=== PATIENT | female | born 1945 | race Hispanic/Latino ===

== ENCOUNTER → 2017-11-15 | Outpatient (CLI) | payer OTHER | LOC: RAH 13:03 | PROVIDERS: ATTEND Internal Medicine | DX: M17.11 Unilateral primary osteoarthritis, right knee (principal) | CPT/HCPCS: 73562 ==

== ENCOUNTER 2018-01-06 10:51 | Emergency (ER) | payer OTHER ==
[2018-01-06] MEDS ORDERED: ASPIRIN 325 MG TABLET ONE (11:10)
[2018-01-06 11:24] LABS: BASOPHILS % (AUTO) 0.5 % (0.0-5.0); EOSINOPHILS % (AUTO) 0.3 % (0.0-8.0); LYMPHOCYTES % (AUTO) 24.3 % (21.0-51.0); MEAN CORPUSCULAR HEMOGLOBIN 30.6 pg (27.0-33.0); MEAN CORPUSCULAR HGB CONC 34.1 g/dL (32.0-36.0); MEAN CORPUSCULAR VOLUME 89.7 fL (79-99); MONOCYTES % (AUTO) 6.2 % (3.0-13.0); NEUTROPHILS % (AUTO) 68.7 % (40.0-77.0); PLATELET COUNT (AUTO) 216 K/uL (130-400); RED BLOOD CELL COUNT(AUTO) 4.68 MIL/uL (4.00-5.50); RED CELL DISTRIBUTION WIDTH 13.2 % (11.0-15.5); WHITE BLOOD COUNT (AUTO) 6.4 K/uL (4.8-10.8)
[2018-01-06 11:32] LABS: CREATININE 0.8 mg/dL (0.5-1.5); POTASSIUM 3.1 mmol/L (3.5-5.1)
[2018-01-06 11:38] LABS: INR 1.03 (0.85-1.15); PARTIAL THROMBOPLASTIN TIME 24.8 SEC (26.3-35.5); PROTHROMBIN TIME 10.8 SEC (9.6-11.6)
[2018-01-06 11:45] LABS: ALBUMIN 3.5 g/dL (3.5-5.0); BILIRUBIN,TOTAL 0.8 mg/dL (0.2-1.0); CREATINE KINASE MB 2.6 ng/mL (0.5-3.6); TOTAL PROTEIN, SERUM 6.5 g/dL (6.0-8.3)
[2018-01-06] MEDS ORDERED: POTASSIUM BICARB/CIT AC 25 MEQ TABLET.EFF ONE (12:02)
[2018-01-06 14:19] LABS: APPEARANCE,URINE Clear (CLEAR); BILIRUBIN,URINE Negative (NEGATIVE); COLOR,URINE Yellow (YELLOW); GLUCOSE, URINE (UA) 250 mg/dL (NEGATIVE); KETONES,URINE Trace mg/dL (NEGATIVE); LEUKOCYTE ESTERASE ,URINE Large (NEGATIVE); NITRATE,URINE Negative (NEGATIVE); OCCULT BLOOD,URINE Negative (NEGATIVE); PROTEIN,URINE Negative (NEGATIVE)
[2018-01-06 14:34] LABS: BACTERIA,URINE Few /HPF (None Seen); MUCUS,URINE Few LPF (None Seen); RBC,URINE 0-1 /HPF (0-1); SQUAMOUS EPITHELIAL CELL,UR Rare /HPF (0-2); TRANSITIONAL EPI CELLS,URINE Few /HPF (None Seen)
[2018-01-06] MEDS ORDERED: SODIUM CHLORIDE 0.9% 100 ML IV ONE ×2 (15:15→15:19)
[2018-01-06] MEDS ORDERED: CEFTRIAXONE SODIUM 1 GM ONE ×2 (15:15→15:19)
== END 2018-01-06 15:58 | disposition home or self-care (01) ==
LOC: EDH 10:51
DX: R07.89 Other chest pain (principal); N30.00 Acute cystitis without hematuria; E87.6 Hypokalemia; R45.1 Restlessness and agitation; G30.9 Alzheimer's disease, unspecified; F02.80 Dementia in other diseases classified elsewhere, unspecified severity, without behavioral disturbance, psychotic disturbance, mood disturbance, and anxiety; E11.9 Type 2 diabetes mellitus without complications; I10 Essential (primary) hypertension
CPT/HCPCS: 36415; 71045; 80053; 81001; 82550; 82553; 83690; 83874; 84484 ×2; 85025; 85610; 85730; 93005 ×2; 96374; 99285; J0696

== ENCOUNTER 2019-06-22 12:45 | Inpatient (IN) | payer OTHER ==
--- NOTE | 2019-06-21 11:00 | NUR ---
INITIAL PT WELL KNOWN TO THIS CM DAUGHTER MET ME AT THE DOOR OF ROOM AND STATES I REMEMBER YOU, YOU WANTED HER TO GO [place] [facility] ON LAST ADMIT SUGGESTION OF [facility] WAS PRESENTED BY DR. FRENCH BUT FAMILY DID NOT AGREE. LIVES IN [facility]03 CARE PROVIDERS. MNEEDS ONE TO ONE SUPERVISION PT WITH STAGE IV SACRAL DECUBITUS- HAS HAD UHH AND WOUND VAC AT HOME- RECENTLY REMOVED, HAS BEEN FOLLOWING WITH DR. KING. FAMILY DOES NOT WANT PT TO GO TO A SNF- FEELS PT WILL BE TOO DISORIENTED AT A SNF. [facility] AND WAS VERY UPSET WITH THE CARE FROM DR. LUNA- STATES WAS SCHEDULED TO HAS ANOTHER DEBRIDEMENT PER DR. KING ON WEDNESDAY BUT CAME IN EARLY FAMILY STATES THAT DR. KING TOLD HER THIS WOUND WOULD NOT HEAL- PT WITH DEMENTIA AND POOR APPETITE, WILL EVENTUALLY NEED PEG, POSS HOSPICE CANDIDATE IF FAMILY DOES NOT WANT AGGRESSIVE INTERVENTION? FAMILY STATES WILL THINK ABOUT DIRECTION OF CARE AFTER I/D ON WEDNESDAY
[~2019-06-22] VITALS: Ht 160 cm; Wt 52.2 kg
[~2019-06-22 12:45] MED LIST: BACL10TA PO; BUSP10TA3 PO; LISI-617 PO; MELO-108 PO; METF-444 PO; RISP1TAB26 PO; SERT25TA5 PO; TRAZ-185 PO
[2019-06-22 14:07] LABS: BASOPHILS % (AUTO) 0.8 % (0.0-5.0); EOSINOPHILS % (AUTO) 0.9 % (0.0-8.0); HEMATOCRIT 29.1 % (36-48); LYMPHOCYTES % (AUTO) 11.9 % (21.0-51.0); MEAN CORPUSCULAR HEMOGLOBIN 30.8 pg (27.0-33.0); MEAN CORPUSCULAR HGB CONC 34.1 g/dL (32.0-36.0); MEAN CORPUSCULAR VOLUME 90.3 fL (79-99); MONOCYTES % (AUTO) 7.9 % (3.0-13.0); NEUTROPHILS % (AUTO) 78.5 % (40.0-77.0); PLATELET COUNT (AUTO) 242 K/uL (130-400); RED BLOOD CELL COUNT(AUTO) 3.22 MIL/uL (4.00-5.50); RED CELL DISTRIBUTION WIDTH 13.6 % (11.0-15.5); WHITE BLOOD COUNT (AUTO) 8.6 K/uL (4.8-10.8)
[2019-06-22 14:16] LABS: CARBON DIOXIDE 28 mmol/L (21-32); CHLORIDE 105 mmol/L (101-111); CREATININE 1.3 mg/dL (0.5-1.5); GLOMERULAR FILTR. RATE CALC 43 mL/min (>60); GLUCOSE,RANDOM 174 mg/dL (70-105); POTASSIUM 4.5 mmol/L (3.5-5.1); SODIUM SERUM 141 mmol/L (136-145); UREA NITROGEN, BLOOD 39 mg/dL (7-18)
[2019-06-22 14:18] LABS: INR 1.02 (0.85-1.15); PARTIAL THROMBOPLASTIN TIME 27.2 SEC (26.3-35.5); PROTHROMBIN TIME 10.7 SEC (9.6-11.6)
[2019-06-22 14:26] LABS: ALANINE AMINOTRANSFERASE 13 U/L (12-78); ALBUMIN 2.9 g/dL (3.5-5.0); ASPARTATE AMINOTRANSFERASE 18 U/L (10-37); BILIRUBIN,TOTAL 0.2 mg/dL (0.2-1.0); CREATINE KINASE, TOTAL 112 U/L (21-232); MYOGLOBIN 71 ng/mL (10-92); TOTAL PROTEIN, SERUM 6.4 g/dL (6.0-8.3); TROPONIN I < 0.04 ng/mL (0.00-0.06)
[2019-06-22] MEDS ORDERED: ZOSYN 3.375GM+NS 50ML 50 ML IV ONE (15:28)
[2019-06-22] MEDS ORDERED: SODIUM CHLORIDE 0.9% 1000ML 1,000 ML IV ONE ×2 (15:29→18:18)
[2019-06-22] MEDS ORDERED: MORPHINE SULFATE 4 MG/1ML SYG ONE (16:09)
[2019-06-22 16:11] LABS: APPEARANCE,URINE Clear (CLEAR); BILIRUBIN,URINE Small (NEGATIVE); COLOR,URINE Dark Yellow (YELLOW); GLUCOSE, URINE (UA) Negative (NEGATIVE); KETONES,URINE Negative (NEGATIVE); LEUKOCYTE ESTERASE ,URINE Small (NEGATIVE); NITRATE,URINE Negative (NEGATIVE); OCCULT BLOOD,URINE Negative (NEGATIVE); PROTEIN,URINE Negative (NEGATIVE)
[2019-06-22] MEDS ORDERED: VANCOMYCIN 1GM+NS 250ML 250 ML IV ONE (16:14)
[2019-06-22 16:28] LABS: BACTERIA,URINE Rare /HPF (None Seen); RBC,URINE 0-1 /HPF (0-1); SQUAMOUS EPITHELIAL CELL,UR Rare /HPF (0-2); TRANSITIONAL EPI CELLS,URINE Few /HPF (None Seen)
[2019-06-22 16:29] LABS: HYALINE CASTS, URINE 0-1 /LPF (0-1 /LPF)
[2019-06-22] MEDS: SODIUM CHLORIDE 0.9% 1000ML 1,000 ML IV SCH (17:27)
[2019-06-22] MEDS ORDERED: PHARMACY COMMUNICATION MISC SCH (17:45)
[2019-06-22] MEDS ORDERED: ONDANSETRON HCL 4 MG/2 ML VIAL IVP PRN (17:45)
[2019-06-22] MEDS ORDERED: RENAL DOSE IV SCH (17:45)
[2019-06-22] MEDS ORDERED: VANCOMYCIN PROTOCOL PER PHARMACY IV SCH (18:00)
[2019-06-22] MEDS ORDERED: DEXTROSE 50%-WATER 50 ML DISP.SYRIN IV PRN (18:00)
[2019-06-22] MEDS ORDERED: GLUCAGON 1MG KIT 1 MG ML IM PRN (18:00)
[2019-06-22] MEDS ORDERED: MORPHINE SULFATE 2 MG/ML 1ML SYG ONE (20:56)
[2019-06-22] MEDS: INSULIN HUMULIN R 100 UNIT/ML 3ML SQ SCH (21:00)
[2019-06-22 22:45] VITALS: BP 147/73
[2019-06-22] MEDS: ZOSYN 3.375GM+NS 50ML 50 ML IV SCH (23:43)
[2019-06-23 03:00] VITALS: BP 151/67
--- NOTE | 2019-06-23 03:30 | NUR ---
WOUND CARE PT CAME IN WITH DRESSED SACRAL DECUBITUS ULCER. STRONG FOUL ORDER NOTICED. REMOVED OLD DRESSING FROM SACRAL WOUND. WOUND REVEALS VISIBLE MUSCLE. WOUND HAS STRONG, FOUL ORDER. WOUND MEASURES 12CM X 15 CM. APPLIED BETADINE CAST TO WOUND AND COVERED WITH GAUZE. PT TOLERATED WOUND CHANGE WELL.
[2019-06-23 04:59] LABS: BASOPHILS % (AUTO) 1.2 % (0.0-5.0); EOSINOPHILS % (AUTO) 1.5 % (0.0-8.0); HEMATOCRIT 28.2 % (36-48); LYMPHOCYTES % (AUTO) 14.2 % (21.0-51.0); MEAN CORPUSCULAR HEMOGLOBIN 30.2 pg (27.0-33.0); MEAN CORPUSCULAR HGB CONC 33.7 g/dL (32.0-36.0); MEAN CORPUSCULAR VOLUME 89.5 fL (79-99); MONOCYTES % (AUTO) 8.2 % (3.0-13.0); NEUTROPHILS % (AUTO) 74.9 % (40.0-77.0); PLATELET COUNT (AUTO) 245 K/uL (130-400); RED BLOOD CELL COUNT(AUTO) 3.15 MIL/uL (4.00-5.50); RED CELL DISTRIBUTION WIDTH 13.4 % (11.0-15.5); WHITE BLOOD COUNT (AUTO) 7.8 K/uL (4.8-10.8)
[2019-06-23] MEDS ORDERED: VANCOMYCIN 500MG+NS 100ML 100 ML IV SCH (05:00)
[2019-06-23 05:02] LABS: POTASSIUM 3.5 mmol/L (3.5-5.1)
[2019-06-23] MEDS ORDERED: FURO20TA4 PO (05:35)
[2019-06-23] MEDS ORDERED: LORA0.5T83 PO (05:35)
[2019-06-23] MEDS ORDERED: TRAM1TAB PO (05:35)
[2019-06-23] MEDS: ZOSYN 3.375GM+NS 50ML 50 ML IV SCH ×2 (05:54→17:15)
[2019-06-23] MEDS: INSULIN HUMULIN R 100 UNIT/ML 3ML SQ SCH ×4 (07:30→20:31)
[2019-06-23 08:03] VITALS: BP 137/71
--- NOTE | 2019-06-23 10:05 | NUR ---
PAGED DR. KING
[2019-06-23] MEDS ORDERED: TRAM-355 PO (10:24)
[2019-06-23] MEDS ORDERED: GADODIAMIDE 10 MMOL/20 ML VIAL IV ONE (10:29)
[2019-06-23] MEDS: ENOXAPARIN SODIUM 30 MG/0.3 ML SQ SCH (10:38)
[2019-06-23] MEDS: VANCOMYCIN 500MG+NS 100ML 100 ML IV SCH (10:42)
--- NOTE | 2019-06-23 11:00 | NUR ---
INITIAL MET W PT AND DAUGHTER/ GRANDDAUGHTER AT [facility]- PT LIVES WITH DAUGHTER [place] CASE HAS BEEN CARE DEPENDENDT FOR ABOUT 7 YEARS- TRANSFER FROM BED TO W/CHAIR, USES A WALKER TO STAND, NEEDS ASSISTANC EWITH MOST TASKS, CURRENTLY IS MORE IDSORIENTED THAN USUAL, 2/2 TO PAIN MEDICAITON NOT SURE WHAT THE DISPOSTION WITH BE- FAMILY WANTS PT TO GO TO SNF FOR REHAB- NOT SURE WHAT REHAB WILL BE APPROPIRATE- PT WITH [facility] IMMOBIL[facility] AND NO SURGEON HAS GIVEN AN OK FOR PT. CM TO FOLLOW
[2019-06-23 12:00] VITALS: BP_SYST 127; BP_SYST 130; BP_DIAS 64; BP_DIAS 68
--- NOTE | 2019-06-23 12:04 | NUR ---
DR. SHERWOOD AWARE OF CONSULT
--- NOTE | 2019-06-23 12:30 | NUR ---
FAMILY REFUSING DR. KUMAR, DAUGHTER DOES NOT WANT ANYONE ELSE, BUT DR. KING SHE IS AWARE DR. KING IS OUT OF TOWN AND WILL NOT BE B ACK UNTIL WEDNESDAY [facility]PITAL[facility] [facility] AWARE DR. KUMAR AWARE FAMILY REFUSED CONSULT W HIM
--- NOTE | 2019-06-23 13:39 | NUR ---
FAMILY REFUSED CONSULT FOR DR. ADINA Gee WOUND CARE DAUGHTER STATED THEY DO NOT WANT HIM, SINCE PATIENT IS BEING FOLLOWED BY DR. KING. [facility] A[facility]
--- NOTE | 2019-06-23 13:47 | NUR ---
ESTRELLA FROM WOUND CARE AWARE OF WOUND CARE CONSULT
--- NOTE | 2019-06-23 15:15 | NUR ---
[facility] CONSULT PATIENT ASSESSED REQUESTED: PATIENT PRESENTS WITH UNSTAGEABLE PRESSURE ULCER TO RIGHT BUTTOCK; [facility] RECOMMENDATIONS SUBMITTED. Addendum: 06/23/19 at 1517 by ALEX JOHNSON LVN LVN W Amended: Links added.
[2019-06-23 16:00] VITALS: BP 142/81
[2019-06-23] MEDS ORDERED: METFORMIN HCL 500 MG TABLET PO SCH (17:00)
[2019-06-23] MEDS: BACLOFEN 10 MG TABLET PO SCH (17:15)
[2019-06-23] MEDS: SERTRALINE HCL 50 MG TABLET PO SCH (20:29)
[2019-06-23] MEDS: SODIUM CHLORIDE 0.9% 1000ML 1,000 ML IV SCH (20:29)
[2019-06-23] MEDS: RISPERIDONE 1 MG TABLET PO SCH (20:29)
[2019-06-23 20:31] VITALS: BP 142/72
[2019-06-23] MEDS ORDERED: PHARMACY COMMUNICATION MISC SCH (22:45)
[2019-06-23 23:30] VITALS: BP 132/70
[2019-06-24] MEDS: ZOSYN 3.375GM+NS 50ML 50 ML IV SCH ×4 (00:43→20:50)
[2019-06-24 03:30] VITALS: BP 151/76
[2019-06-24 06:18] LABS: BASOPHILS % (AUTO) 0.9 % (0.0-5.0); EOSINOPHILS % (AUTO) 1.5 % (0.0-8.0); HEMATOCRIT 29.6 % (36-48); LYMPHOCYTES % (AUTO) 14.7 % (21.0-51.0); MEAN CORPUSCULAR HEMOGLOBIN 30.8 pg (27.0-33.0); MEAN CORPUSCULAR HGB CONC 34.5 g/dL (32.0-36.0); MEAN CORPUSCULAR VOLUME 89.3 fL (79-99); MONOCYTES % (AUTO) 8.2 % (3.0-13.0); NEUTROPHILS % (AUTO) 74.7 % (40.0-77.0); PLATELET COUNT (AUTO) 252 K/uL (130-400); RED BLOOD CELL COUNT(AUTO) 3.32 MIL/uL (4.00-5.50); RED CELL DISTRIBUTION WIDTH 13.4 % (11.0-15.5); WHITE BLOOD COUNT (AUTO) 7.3 K/uL (4.8-10.8)
[2019-06-24 06:29] LABS: CREATININE 0.8 mg/dL (0.5-1.5); POTASSIUM 3.1 mmol/L (3.5-5.1)
[2019-06-24] MEDS: VANCOMYCIN 500MG+NS 100ML 100 ML IV SCH (06:36)
[2019-06-24] MEDS: INSULIN HUMULIN R 100 UNIT/ML 3ML SQ SCH ×4 (06:38→20:48)
[2019-06-24] MEDS ORDERED: COMPOUND IV REFRIGERATED 1 EACH IVSOLN MISC PRN (07:00)
[2019-06-24 07:30] VITALS: BP 150/78
[2019-06-24] MEDS ORDERED: LIDOCAINE HCL-MPF 1% 2ML VIAL IV PRN (07:45)
[2019-06-24] MEDS: BUSPIRONE HCL 5 MG TABLET PO SCH (08:03)
[2019-06-24] MEDS: SERTRALINE HCL 50 MG TABLET PO SCH ×2 (08:03→20:45)
[2019-06-24] MEDS: FUROSEMIDE 20 MG TABLET PO SCH (08:03)
[2019-06-24] MEDS: LISINOPRIL 5 MG TABLET PO SCH (08:03)
[2019-06-24] MEDS: MELOXICAM 7.5 MG TABLET PO SCH (08:03)
[2019-06-24] MEDS: MORPHINE SULFATE 2 MG/ML 1ML SYG IV PRN (08:05)
[2019-06-24] MEDS: ENOXAPARIN SODIUM 30 MG/0.3 ML SQ SCH (08:05)
[2019-06-24] MEDS: SODIUM CHLORIDE 0.9% 1000ML 1,000 ML IV SCH ×2 (08:06→20:59)
[2019-06-24 11:00] VITALS: BP 132/73
--- NOTE | 2019-06-24 12:29 | NUR ---
Nutrition Intervention: Nutrition consult due to malnutrition. Pt. admitted with Dx of Stg 4 Sacral decubitus ulcer. Pt. with fair p.o. intake as noted in EMR. Labs reviewed(Alb 2.9, BG 124). LBM: 06/22/19. SR-10, ulcer to right buttock/sacrum. BMI: 20.4, appropriate for age. Recommendations: 1) Rec. 30ml ProMod and Glucerna supp. BID with B'fast and dinner meals. 2) Rec. 500mg Vit C BID and 220mg Zn Sulfate QD to help promote wound healing. 3) Continue to monitor pt's nutritional status. 4) Consult RD as nutrition concerns arise. Addendum: 06/24/19 at [address] Amended: Links added.
--- NOTE | 2019-06-24 15:00 | NUR ---
WOUND CARE' UNSTABLE PRESSURE ULCER CLEANED PER [facility] RECOMMENDATIONS. WOUND SITE RINSED WITH NS, BETADINE CAST APPLIED TO SITE. PATIENT TOLERATED WELL.
[2019-06-24 15:36] VITALS: BP 154/77
[2019-06-24] MEDS: BACLOFEN 10 MG TABLET PO SCH (17:03)
[2019-06-24] MEDS ORDERED: VANCOMYCIN 1.25 GM in SODIUM CHLORIDE 0.9% 250 ML IV SCH (18:00)
[2019-06-24] MEDS: POTASSIUM CHLORIDE 10% ELIXIR 20 MEQ/15 ML UDCUP PO PRN (18:30)
[2019-06-24 19:00] VITALS: BP 139/74
[2019-06-24] MEDS: RISPERIDONE 1 MG TABLET PO SCH (20:45)
[2019-06-24 23:00] VITALS: BP 133/70
[2019-06-25] MEDS: POTASSIUM CHLORIDE 20MEQ/100ML 100 ML IV PRN ×3 (00:29→18:29)
[2019-06-25 03:39] VITALS: BP 136/65
[2019-06-25 05:25] LABS: BASOPHILS % (AUTO) 0.8 % (0.0-5.0); EOSINOPHILS % (AUTO) 1.2 % (0.0-8.0); HEMATOCRIT 30.2 % (36-48); LYMPHOCYTES % (AUTO) 10.8 % (21.0-51.0); MEAN CORPUSCULAR VOLUME 88.4 fL (79-99); MONOCYTES % (AUTO) 7.6 % (3.0-13.0); NEUTROPHILS % (AUTO) 79.6 % (40.0-77.0); PLATELET COUNT (AUTO) 305 K/uL (130-400); RED BLOOD CELL COUNT(AUTO) 3.42 MIL/uL (4.00-5.50); RED CELL DISTRIBUTION WIDTH 13.3 % (11.0-15.5); WHITE BLOOD COUNT (AUTO) 8.4 K/uL (4.8-10.8)
[2019-06-25] MEDS: VANCOMYCIN 750MG + NS 250 ML IV SCH ×4 (05:31→19:29)
[2019-06-25 05:33] LABS: ALBUMIN 2.5 g/dL (3.5-5.0); BILIRUBIN,TOTAL 0.4 mg/dL (0.2-1.0); CREATININE 0.8 mg/dL (0.5-1.5); POTASSIUM 3.3 mmol/L (3.5-5.1)
[2019-06-25] MEDS: INSULIN HUMULIN R 100 UNIT/ML 3ML SQ SCH ×4 (05:44→20:39)
[2019-06-25] MEDS: ZOSYN 3.375GM+NS 50ML 50 ML IV SCH ×3 (05:46→21:49)
[2019-06-25 09:30] VITALS: BP 138/61
[2019-06-25] MEDS: FUROSEMIDE 20 MG TABLET PO SCH (09:38)
[2019-06-25] MEDS: BUSPIRONE HCL 5 MG TABLET PO SCH (09:38)
[2019-06-25] MEDS: MELOXICAM 7.5 MG TABLET PO SCH (09:38)
[2019-06-25] MEDS: LISINOPRIL 5 MG TABLET PO SCH (09:38)
[2019-06-25] MEDS: SERTRALINE HCL 50 MG TABLET PO SCH ×2 (09:38→20:34)
[2019-06-25] MEDS: ENOXAPARIN SODIUM 30 MG/0.3 ML SQ SCH (09:39)
[2019-06-25 11:53] VITALS: BP 134/74
[2019-06-25] MEDS: SODIUM CHLORIDE 0.9% 1000ML 1,000 ML IV SCH (12:15)
[2019-06-25] MEDS: MAGNESIUM 2GM PREMIX 50ML 50 ML IV PRN (12:23)
--- NOTE | 2019-06-25 14:00 | NUR ---
WOUND CARE UNSTAGEABLE PRESSURE ULCER CLEANED WITH NS, 4X4 WITH BETADINE APPLIED TO WOUND PER [facility] RECOMMENDATIONS. COVERED WITH ABD PAD AND TAPE. PATIENT COMPLAINED OF PAIN. MORPHINE 2 MG ADMINISTERED PER EMAR. WILL CONTINUE TO MONITOR.
[2019-06-25 16:00] VITALS: BP 137/78
[2019-06-25] MEDS: BACLOFEN 10 MG TABLET PO SCH (18:26)
[2019-06-25] MEDS: MORPHINE SULFATE 2 MG/ML 1ML SYG IV PRN (18:27)
[2019-06-25 20:09] VITALS: BP 137/66
[2019-06-25] MEDS: RISPERIDONE 1 MG TABLET PO SCH (20:34)
[2019-06-26] VITALS (7 sets, daily range): BP systolic 132–148; BP diastolic 54–75
[2019-06-26] MEDS: SODIUM CHLORIDE 0.9% 1000ML 1,000 ML IV SCH ×2 (01:27→15:47)
[2019-06-26 04:17] LABS: MAGNESIUM 1.8 mg/dL (1.80-2.40); POTASSIUM 3.5 mmol/L (3.5-5.1)
[2019-06-26] MEDS: INSULIN HUMULIN R 100 UNIT/ML 3ML SQ SCH ×4 (05:47→20:13)
[2019-06-26] MEDS: ZOSYN 3.375GM+NS 50ML 50 ML IV SCH ×3 (05:49→20:13)
[2019-06-26] MEDS: VANCOMYCIN 750MG + NS 250 ML IV SCH ×4 (06:18→17:31)
[2019-06-26 07:30] LABS: BASOPHILS % (AUTO) 0.8 % (0.0-5.0); EOSINOPHILS % (AUTO) 1.8 % (0.0-8.0); HEMATOCRIT 30.3 % (36-48); LYMPHOCYTES % (AUTO) 14.3 % (21.0-51.0); MEAN CORPUSCULAR HEMOGLOBIN 30.8 pg (27.0-33.0); MEAN CORPUSCULAR HGB CONC 34.5 g/dL (32.0-36.0); MEAN CORPUSCULAR VOLUME 89.2 fL (79-99); MONOCYTES % (AUTO) 8.5 % (3.0-13.0); NEUTROPHILS % (AUTO) 74.6 % (40.0-77.0); PLATELET COUNT (AUTO) 292 K/uL (130-400); RED CELL DISTRIBUTION WIDTH 13.4 % (11.0-15.5); WHITE BLOOD COUNT (AUTO) 6.7 K/uL (4.8-10.8)
[2019-06-26 07:51] LABS: CREATININE 0.8 mg/dL (0.5-1.5); POTASSIUM 3.2 mmol/L (3.5-5.1)
[2019-06-26] MEDS: BUSPIRONE HCL 5 MG TABLET PO SCH (10:10)
[2019-06-26] MEDS: LISINOPRIL 5 MG TABLET PO SCH (10:11)
[2019-06-26] MEDS: SERTRALINE HCL 50 MG TABLET PO SCH ×2 (10:11→20:13)
[2019-06-26] MEDS: FUROSEMIDE 20 MG TABLET PO SCH (10:11)
[2019-06-26] MEDS: MELOXICAM 7.5 MG TABLET PO SCH (10:11)
[2019-06-26] MEDS: ENOXAPARIN SODIUM 30 MG/0.3 ML SQ SCH (10:13)
[2019-06-26] MEDS: POTASSIUM CHLORIDE 20 MEQ ERTAB PO PRN ×2 (10:50→17:31)
[2019-06-26] MEDS: MORPHINE SULFATE 2 MG/ML 1ML SYG IV PRN ×2 (10:59→20:21)
--- NOTE | 2019-06-26 14:27 | NUR ---
CM Note: [facility] pending ins auth CM met w/pt discussed MD recommendation for LTAC as pt will need antibiotics as well we woundcare, agreeable, requested to have daughter called. CM called Stephanie Egan , discussed MD recommendations per pt req. Daughter agreeable if needed truck terminal manager placement for woundcare and abx, telephone consent RADHA obtained for [facility]. Faxed order, clinicals, confirmation received. Spoke to Subha, will come eval pt aware pt pending I&D w/Dr Thomason tomorrow. Pt pending ins auth and acceptance. MOT semi-filled pending to be completed once approved, flagged in chart. EMS filled out, pending to be faxed w/current date, primary nurse to call [facility] once pt ready to DC. Primary nurse aware. CM to cont to follow up.
[2019-06-26] MEDS: METRONIDAZOLE 500 MG TABLET PO SCH (17:23)
[2019-06-26] MEDS: BACLOFEN 10 MG TABLET PO SCH (17:23)
[2019-06-26] MEDS: RISPERIDONE 1 MG TABLET PO SCH (20:12)
[2019-06-26] MEDS: MAGNESIUM 2GM PREMIX 50ML 50 ML IV PRN (20:17)
[2019-06-27] VITALS (25 sets, daily range): BP systolic 105–153; BP diastolic 48–96
[2019-06-27] MEDS: METRONIDAZOLE 500 MG TABLET PO SCH ×4 (01:54→23:11)
[2019-06-27] MEDS: ZOSYN 3.375GM+NS 50ML 50 ML IV SCH ×3 (05:44→20:48)
[2019-06-27] MEDS: VANCOMYCIN 750MG + NS 250 ML IV SCH ×4 (05:44→18:56)
[2019-06-27] MEDS: INSULIN HUMULIN R 100 UNIT/ML 3ML SQ SCH ×4 (07:30→20:56)
[2019-06-27] MEDS: SODIUM CHLORIDE 0.9% 1000ML 1,000 ML IV SCH ×3 (08:17→18:39)
[2019-06-27] MEDS ORDERED: LIDOCAINE PF 2% 5ML ABBOJECT ONE (08:39)
[2019-06-27] MEDS ORDERED: NEOSTIGMINE 5MG/5ML SYR IV ONE (08:39)
[2019-06-27] MEDS ORDERED: GLYCOPYRROLATE 1 MG/5 ML SYRINGE ONE (08:39)
[2019-06-27] MEDS ORDERED: SUCCINYLCHOLINE 200MG/10ML SYR ONE (08:39)
[2019-06-27] MEDS ORDERED: PROPOFOL 10 MG/ML 20ML VIAL IV ONE (08:39)
[2019-06-27] MEDS ORDERED: ROCURONIUM 10MG/1ML SYR 10 MG/ML ML ONE (08:39)
[2019-06-27] MEDS ORDERED: DEXAMETHASONE SOD PHOSPHATE 10MG/ML 1ML VIAL ONE (08:39)
[2019-06-27] MEDS: FUROSEMIDE 20 MG TABLET PO SCH (08:51)
[2019-06-27] MEDS: MELOXICAM 7.5 MG TABLET PO SCH (08:51)
[2019-06-27] MEDS: SERTRALINE HCL 50 MG TABLET PO SCH ×2 (08:51→20:48)
[2019-06-27] MEDS: ENOXAPARIN SODIUM 30 MG/0.3 ML SQ SCH (08:51)
[2019-06-27] MEDS: BUSPIRONE HCL 5 MG TABLET PO SCH (08:51)
[2019-06-27] MEDS: LISINOPRIL 5 MG TABLET PO SCH (08:51)
[2019-06-27] MEDS ORDERED: FENTANYL CITRATE PF 50 MCG/1 ML 2ML VIAL ONE (08:56)
[2019-06-27] MEDS ORDERED: EPHEDRINE SULFATE 50 MG/ML AMPULE ONE (09:09)
[2019-06-27] MEDS ORDERED: ESMOLOL HCL 10 MG/ML 10 ML VIAL ONE (09:20)
[2019-06-27] MEDS ORDERED: METOPROLOL TARTRATE 1 MG/ML 5ML VIAL IV ONE (09:24)
--- NOTE | 2019-06-27 16:57 | NUR ---
RD Follow Up Note Pt NPO at time of visit, pending Debridement. Recommend to resume 75gm CC Diet when medically feasible. Recommend to add Ryan BID, Vitamin C/ZnSO4 daily for wound healing support. Pt previously tolerated diet with no report of GI distress, fair PO (75%). Pt LBM 06/27/19. Pt monitored labs: K 3.2, Glu 207, Ca 8.2, Mg 1.40, Alb 2.5. RD to continue to monitor. Please notify RD as additional nutrition concerns arise. Thank you. Addendum: 06/27/19 at [address] Amended: Links added.
[2019-06-27] MEDS: MORPHINE SULFATE 2 MG/ML 1ML SYG IV PRN (18:37)
[2019-06-27] MEDS: BACLOFEN 10 MG TABLET PO SCH (18:38)
[2019-06-27] MEDS: RISPERIDONE 1 MG TABLET PO SCH (20:48)
[2019-06-28] VITALS: BP 122/59
[2019-06-28] MEDS: SODIUM CHLORIDE 0.9% 1000ML 1,000 ML IV SCH ×3 (04:46→21:41)
[2019-06-28 04:59] LABS: BASOPHILS % (AUTO) 1.5 % (0.0-5.0); EOSINOPHILS % (AUTO) 3.5 % (0.0-8.0); LYMPHOCYTES % (AUTO) 15.7 % (21.0-51.0); MEAN CORPUSCULAR HEMOGLOBIN 31.4 pg (27.0-33.0); MEAN CORPUSCULAR HGB CONC 35.2 g/dL (32.0-36.0); MEAN CORPUSCULAR VOLUME 89.2 fL (79-99); MONOCYTES % (AUTO) 10.6 % (3.0-13.0); NEUTROPHILS % (AUTO) 68.7 % (40.0-77.0); PLATELET COUNT (AUTO) 293 K/uL (130-400); RED BLOOD CELL COUNT(AUTO) 3.02 MIL/uL (4.00-5.50); RED CELL DISTRIBUTION WIDTH 13.7 % (11.0-15.5); WHITE BLOOD COUNT (AUTO) 6.5 K/uL (4.8-10.8)
[2019-06-28] MEDS: ZOSYN 3.375GM+NS 50ML 50 ML IV SCH ×3 (05:19→21:41)
[2019-06-28 05:28] LABS: ALBUMIN 2.2 g/dL (3.5-5.0); BILIRUBIN,TOTAL 0.3 mg/dL (0.2-1.0); CREATININE 0.7 mg/dL (0.5-1.5); POTASSIUM 3.5 mmol/L (3.5-5.1); TOTAL PROTEIN, SERUM 5.2 g/dL (6.0-8.3)
[2019-06-28] MEDS: VANCOMYCIN 750MG + NS 250 ML IV SCH ×4 (06:27→17:51)
[2019-06-28] MEDS: METRONIDAZOLE 500 MG TABLET PO SCH ×3 (06:27→21:44)
[2019-06-28] MEDS: INSULIN HUMULIN R 100 UNIT/ML 3ML SQ SCH ×4 (06:39→21:42)
[2019-06-28 07:35] VITALS: BP 133/54
[2019-06-28] MEDS: ENOXAPARIN SODIUM 30 MG/0.3 ML SQ SCH (09:00)
[2019-06-28] MEDS: MELOXICAM 7.5 MG TABLET PO SCH (09:53)
[2019-06-28] MEDS: SERTRALINE HCL 50 MG TABLET PO SCH ×2 (09:53→21:37)
[2019-06-28] MEDS: BUSPIRONE HCL 5 MG TABLET PO SCH (09:53)
[2019-06-28] MEDS: FUROSEMIDE 20 MG TABLET PO SCH (09:53)
[2019-06-28] MEDS: LISINOPRIL 5 MG TABLET PO SCH (09:54)
[2019-06-28 12:00] VITALS: BP 144/64
--- NOTE | 2019-06-28 14:30 | NUR ---
[facility] CONSULT PATIENT ASSESSED REQUESTED: PATIENT PRESENTS WITH STAGE II PRESSURE ULCER TO LEFT EAR; [facility] RECOMMENDATIONS SUBMITTED. Addendum: 06/29/19 at 1140 by ALEX JOHNSON LVN LVN W Amended: Links added.
[2019-06-28 16:00] VITALS: BP 152/65
[2019-06-28] MEDS ORDERED: LORAZEPAM 2 MG/ML 1 ML VIAL IVP PRN (16:45)
[2019-06-28] MEDS: BACLOFEN 10 MG TABLET PO SCH (17:00)
[2019-06-28] MEDS ORDERED: LORAZEPAM 2 MG/ML 1 ML VIAL ONE (17:08)
[2019-06-28] MEDS: MORPHINE SULFATE 2 MG/ML 1ML SYG IV PRN (17:12)
[2019-06-28 19:00] VITALS: BP 136/58
[2019-06-28] MEDS: RISPERIDONE 1 MG TABLET PO SCH (21:37)
[2019-06-29] VITALS: BP 149/65
[2019-06-29 04:00] VITALS: BP 134/55
[2019-06-29] MEDS: SODIUM CHLORIDE 0.9% 1000ML 1,000 ML IV SCH ×4 (04:33→21:59)
[2019-06-29] MEDS: ZOSYN 3.375GM+NS 50ML 50 ML IV SCH ×3 (05:06→21:59)
[2019-06-29] MEDS: VANCOMYCIN 750MG + NS 250 ML IV SCH ×4 (05:34→18:28)
[2019-06-29] MEDS: METRONIDAZOLE 500 MG TABLET PO SCH ×3 (06:06→21:05)
[2019-06-29] MEDS: INSULIN HUMULIN R 100 UNIT/ML 3ML SQ SCH ×4 (06:07→21:32)
[2019-06-29] MEDS: HONEY 1 APPL/ML TUBE TP SCH (08:00)
[2019-06-29 09:00] VITALS: BP 126/88
[2019-06-29] MEDS: ENOXAPARIN SODIUM 30 MG/0.3 ML SQ SCH (10:19)
[2019-06-29] MEDS: MELOXICAM 7.5 MG TABLET PO SCH (10:20)
[2019-06-29] MEDS: FUROSEMIDE 20 MG TABLET PO SCH (10:20)
[2019-06-29] MEDS: LISINOPRIL 5 MG TABLET PO SCH (10:20)
[2019-06-29] MEDS: BUSPIRONE HCL 5 MG TABLET PO SCH (10:20)
[2019-06-29] MEDS: SERTRALINE HCL 50 MG TABLET PO SCH ×2 (10:20→21:05)
[2019-06-29 11:49] VITALS: BP 149/75
[2019-06-29 16:00] VITALS: BP 138/69
[2019-06-29] MEDS: BACLOFEN 10 MG TABLET PO SCH (16:28)
[2019-06-29 19:00] VITALS: BP 159/78
[2019-06-29] MEDS: RISPERIDONE 1 MG TABLET PO SCH (21:05)
[2019-06-30] VITALS: BP 126/60
[2019-06-30 04:00] VITALS: BP 143/71
--- NOTE | 2019-06-30 04:30 | NUR ---
DRESSING LEFT EAR PATIENT GIVEN A BEDBATH, LEFT EAR ULCERATION WITH DRY ESCHAR, NO DRAINAGE NOTED, CLEANSED WITH NS , DAB DRY , APPLY MEDIHONEY, APPLY 2X2 AND HYPAFIX , TOLERATED WELL, SACRAL WOUND VAC INTACT NO LEAKS NOTICED
[2019-06-30 05:14] LABS: BASOPHILS % (AUTO) 1.3 % (0.0-5.0); EOSINOPHILS % (AUTO) 4.8 % (0.0-8.0); LYMPHOCYTES % (AUTO) 25.9 % (21.0-51.0); MEAN CORPUSCULAR HEMOGLOBIN 30.2 pg (27.0-33.0); MEAN CORPUSCULAR HGB CONC 34.2 g/dL (32.0-36.0); MEAN CORPUSCULAR VOLUME 88.2 fL (79-99); MONOCYTES % (AUTO) 9.1 % (3.0-13.0); NEUTROPHILS % (AUTO) 58.9 % (40.0-77.0); PLATELET COUNT (AUTO) 371 K/uL (130-400); RED BLOOD CELL COUNT(AUTO) 3.28 MIL/uL (4.00-5.50); RED CELL DISTRIBUTION WIDTH 13.6 % (11.0-15.5); WHITE BLOOD COUNT (AUTO) 7.2 K/uL (4.8-10.8)
[2019-06-30] MEDS: VANCOMYCIN 750MG + NS 250 ML IV SCH ×4 (05:31→18:52)
[2019-06-30] MEDS: METRONIDAZOLE 500 MG TABLET PO SCH ×3 (05:32→23:06)
[2019-06-30] MEDS: ZOSYN 3.375GM+NS 50ML 50 ML IV SCH ×3 (05:32→21:06)
[2019-06-30] MEDS: LACTULOSE 20 GM/30 ML UDCUP PO PRN (05:35)
[2019-06-30 05:36] LABS: CREATININE 0.8 mg/dL (0.5-1.5); POTASSIUM 3.3 mmol/L (3.5-5.1)
[2019-06-30] MEDS: INSULIN HUMULIN R 100 UNIT/ML 3ML SQ SCH ×4 (05:53→21:00)
[2019-06-30] MEDS: HONEY 1 APPL/ML TUBE TP SCH (05:55)
[2019-06-30] MEDS: POTASSIUM CHLORIDE 10% ELIXIR 20 MEQ/15 ML UDCUP PO PRN ×3 (06:19→23:06)
[2019-06-30 08:00] VITALS: BP 138/72
[2019-06-30] MEDS: FUROSEMIDE 20 MG TABLET PO SCH (10:13)
[2019-06-30] MEDS: MELOXICAM 7.5 MG TABLET PO SCH (10:13)
[2019-06-30] MEDS: LISINOPRIL 5 MG TABLET PO SCH (10:13)
[2019-06-30] MEDS: BUSPIRONE HCL 5 MG TABLET PO SCH (10:14)
[2019-06-30] MEDS: SERTRALINE HCL 50 MG TABLET PO SCH ×2 (10:14→21:06)
[2019-06-30] MEDS: ENOXAPARIN SODIUM 30 MG/0.3 ML SQ SCH (10:15)
--- NOTE | 2019-06-30 10:45 | NUR ---
cm note spoke to Subha Ronquillo states still pending approval, insurance has denied preliminary, but states has spoken to dr Gonzalez, regarding doing an expedited appeal for this pt, states will followup with Dr Arce for paperwork needed, and let cm know.
[2019-06-30 11:00] VITALS: BP 150/71
[2019-06-30 16:32] VITALS: BP 153/66
[2019-06-30] MEDS: BACLOFEN 10 MG TABLET PO SCH (17:37)
[2019-06-30 19:37] VITALS: BP 127/52
[2019-06-30] MEDS: RISPERIDONE 1 MG TABLET PO SCH (21:06)
[2019-06-30] MEDS: SODIUM CHLORIDE 0.9% 1000ML 1,000 ML IV SCH (21:07)
[2019-07-01 00:06] VITALS: BP 133/65
[2019-07-01 03:30] VITALS: BP 156/72
[2019-07-01] MEDS: ZOSYN 3.375GM+NS 50ML 50 ML IV SCH ×3 (05:05→21:45)
[2019-07-01] MEDS: VANCOMYCIN 750MG + NS 250 ML IV SCH ×4 (05:20→18:00)
[2019-07-01 05:40] LABS: BASOPHILS % (AUTO) 1.5 % (0.0-5.0); EOSINOPHILS % (AUTO) 2.7 % (0.0-8.0); HEMATOCRIT 28.5 % (36-48); LYMPHOCYTES % (AUTO) 15.7 % (21.0-51.0); MEAN CORPUSCULAR HEMOGLOBIN 30.2 pg (27.0-33.0); MEAN CORPUSCULAR HGB CONC 34.1 g/dL (32.0-36.0); MEAN CORPUSCULAR VOLUME 88.7 fL (79-99); MONOCYTES % (AUTO) 9.5 % (3.0-13.0); NEUTROPHILS % (AUTO) 70.6 % (40.0-77.0); NUCLEATED RED BLOOD CELLS 0.1 % (0.0-0.19); PLATELET COUNT (AUTO) 347 K/uL (130-400); RED BLOOD CELL COUNT(AUTO) 3.21 MIL/uL (4.00-5.50); RED CELL DISTRIBUTION WIDTH 13.7 % (11.0-15.5); WHITE BLOOD COUNT (AUTO) 7.3 K/uL (4.8-10.8)
[2019-07-01 05:49] LABS: CREATININE 0.8 mg/dL (0.5-1.5); POTASSIUM 3.5 mmol/L (3.5-5.1)
[2019-07-01] MEDS: METRONIDAZOLE 500 MG TABLET PO SCH ×3 (06:03→23:04)
[2019-07-01] MEDS: POTASSIUM CHLORIDE 10% ELIXIR 20 MEQ/15 ML UDCUP PO PRN ×2 (06:04→10:07)
[2019-07-01] MEDS: HONEY 1 APPL/ML TUBE TP SCH (06:41)
[2019-07-01] MEDS: INSULIN HUMULIN R 100 UNIT/ML 3ML SQ SCH ×4 (06:41→20:52)
[2019-07-01 08:00] VITALS: BP 176/72
[2019-07-01] MEDS: BUSPIRONE HCL 5 MG TABLET PO SCH (10:07)
[2019-07-01] MEDS: LISINOPRIL 5 MG TABLET PO SCH (10:08)
[2019-07-01] MEDS: SERTRALINE HCL 50 MG TABLET PO SCH ×3 (10:08→21:00)
[2019-07-01] MEDS: MELOXICAM 7.5 MG TABLET PO SCH (10:08)
[2019-07-01] MEDS: FUROSEMIDE 20 MG TABLET PO SCH (10:09)
[2019-07-01] MEDS: ENOXAPARIN SODIUM 30 MG/0.3 ML SQ SCH (10:09)
[2019-07-01 11:04] VITALS: BP 174/71
--- NOTE | 2019-07-01 12:00 | NUR ---
cm note spoke to dr mares regarding still pending approval for [facility], and states has spoken to [facility] about expedited appeal and has addresed requested paperwork already.
[2019-07-01] MEDS: SODIUM CHLORIDE 0.9% 1000ML 1,000 ML IV SCH (13:41)
[2019-07-01] MEDS: BACLOFEN 10 MG TABLET PO SCH (16:36)
--- NOTE | 2019-07-01 18:20 | NUR ---
Received notification from lab regarding Vanco Trough level of 23.6. Faxed trough level to pharmacy and notified pharmacist. Pharmacy to decrease dose, per pharmacist.
[2019-07-01 19:57] VITALS: BP 128/50
[2019-07-01] MEDS: RISPERIDONE 1 MG TABLET PO SCH ×2 (20:51→21:00)
--- NOTE | 2019-07-01 20:55 | NUR ---
meds not administered pt very drowsy at this time ,medications not given Addendum: 07/02/19 at 0507 by KODY BECERRA RN RN Amended: Links added.
[2019-07-01 23:38] VITALS: BP 141/55
[2019-07-02 03:30] VITALS: BP 136/62
[2019-07-02] MEDS: LACTULOSE 20 GM/30 ML UDCUP PO PRN (05:03)
[2019-07-02 05:35] LABS: BASOPHILS % (AUTO) 1.2 % (0.0-5.0); HEMATOCRIT 31.3 % (36-48); LYMPHOCYTES % (AUTO) 20.5 % (21.0-51.0); MEAN CORPUSCULAR HEMOGLOBIN 30.5 pg (27.0-33.0); MEAN CORPUSCULAR HGB CONC 33.8 g/dL (32.0-36.0); MEAN CORPUSCULAR VOLUME 90.2 fL (79-99); NEUTROPHILS % (AUTO) 64.3 % (40.0-77.0); PLATELET COUNT (AUTO) 402 K/uL (130-400); RED BLOOD CELL COUNT(AUTO) 3.47 MIL/uL (4.00-5.50); RED CELL DISTRIBUTION WIDTH 14.3 % (11.0-15.5)
[2019-07-02] MEDS: VANCOMYCIN 750MG + NS 250 ML IV SCH ×4 (05:44→19:01)
[2019-07-02] MEDS: ZOSYN 3.375GM+NS 50ML 50 ML IV SCH ×2 (05:44→14:56)
[2019-07-02 06:01] LABS: CREATININE 0.8 mg/dL (0.5-1.5); POTASSIUM 3.9 mmol/L (3.5-5.1)
[2019-07-02] MEDS: INSULIN HUMULIN R 100 UNIT/ML 3ML SQ SCH ×4 (06:17→20:51)
[2019-07-02] MEDS: METRONIDAZOLE 500 MG TABLET PO SCH ×3 (06:17→22:37)
[2019-07-02 07:47] VITALS: BP 127/58
[2019-07-02] MEDS: LISINOPRIL 5 MG TABLET PO SCH (09:00)
[2019-07-02] MEDS: MELOXICAM 7.5 MG TABLET PO SCH (09:52)
[2019-07-02] MEDS: SERTRALINE HCL 50 MG TABLET PO SCH ×2 (09:53→20:29)
[2019-07-02] MEDS: FUROSEMIDE 20 MG TABLET PO SCH (09:53)
[2019-07-02] MEDS: BUSPIRONE HCL 5 MG TABLET PO SCH (09:53)
[2019-07-02] MEDS: ENOXAPARIN SODIUM 30 MG/0.3 ML SQ SCH (09:54)
[2019-07-02 11:10] VITALS: BP 127/54
[2019-07-02] MEDS: SODIUM CHLORIDE 0.9% 1000ML 1,000 ML IV SCH (14:56)
[2019-07-02] MEDS: HONEY 1 APPL/ML TUBE TP SCH (14:56)
[2019-07-02 16:02] VITALS: BP 107/68
[2019-07-02] MEDS: BACLOFEN 10 MG TABLET PO SCH (16:55)
[2019-07-02 20:00] VITALS: BP 115/63
[2019-07-02] MEDS: RISPERIDONE 1 MG TABLET PO SCH (20:29)
[2019-07-02 23:46] VITALS: BP 106/48
[2019-07-03 03:51] VITALS: BP 121/62
[2019-07-03 03:54] LABS: BASOPHILS % (AUTO) 1.5 % (0.0-5.0); EOSINOPHILS % (AUTO) 4.8 % (0.0-8.0); LYMPHOCYTES % (AUTO) 16.9 % (21.0-51.0); MEAN CORPUSCULAR HEMOGLOBIN 31.2 pg (27.0-33.0); MEAN CORPUSCULAR HGB CONC 34.5 g/dL (32.0-36.0); MEAN CORPUSCULAR VOLUME 90.4 fL (79-99); MONOCYTES % (AUTO) 7.6 % (3.0-13.0); NEUTROPHILS % (AUTO) 69.2 % (40.0-77.0); PLATELET COUNT (AUTO) 320 K/uL (130-400); RED BLOOD CELL COUNT(AUTO) 3.21 MIL/uL (4.00-5.50); RED CELL DISTRIBUTION WIDTH 13.9 % (11.0-15.5); WHITE BLOOD COUNT (AUTO) 7.9 K/uL (4.8-10.8)
[2019-07-03 04:07] LABS: CREATININE 0.9 mg/dL (0.5-1.5); POTASSIUM 3.7 mmol/L (3.5-5.1)
[2019-07-03] MEDS: SODIUM CHLORIDE 0.9% 1000ML 1,000 ML IV SCH (05:04)
[2019-07-03] MEDS: INSULIN HUMULIN R 100 UNIT/ML 3ML SQ SCH ×4 (05:50→21:59)
[2019-07-03] MEDS: VANCOMYCIN 750MG + NS 250 ML IV SCH ×2 (05:56)
[2019-07-03] MEDS: METRONIDAZOLE 500 MG TABLET PO SCH ×3 (05:56→23:18)
[2019-07-03 08:01] VITALS: BP 123/53
[2019-07-03] MEDS: BUSPIRONE HCL 5 MG TABLET PO SCH (08:40)
[2019-07-03] MEDS: SERTRALINE HCL 50 MG TABLET PO SCH ×2 (08:41→21:49)
[2019-07-03] MEDS: MELOXICAM 7.5 MG TABLET PO SCH (08:41)
[2019-07-03] MEDS: LISINOPRIL 5 MG TABLET PO SCH (08:41)
[2019-07-03] MEDS: FUROSEMIDE 20 MG TABLET PO SCH (08:41)
[2019-07-03] MEDS: ENOXAPARIN SODIUM 30 MG/0.3 ML SQ SCH (08:42)
[2019-07-03] MEDS: HONEY 1 APPL/ML TUBE TP SCH (08:44)
[2019-07-03 11:46] VITALS: BP 132/59
[2019-07-03] MEDS: ACETAMINOPHEN 325 MG TAB PO PRN (12:09)
[2019-07-03 16:00] VITALS: BP 113/79
--- NOTE | 2019-07-03 16:03 | NUR ---
dressing changed/ wound vac to decubitus on coccyx; pt has a circular wound w/ pink tissue noted within wound and undermining noted around edges; no fresh bleeding, black sponge placed within wound and bridged to right side of leg; wound vac continued at constant suction 125; pt jesus. proc. well, she had been premedicated with tylenol prior to procedure. no leak noted.
[2019-07-03] MEDS: BACLOFEN 10 MG TABLET PO SCH (16:38)
--- NOTE | 2019-07-03 19:03 | NUR ---
Vanco Trough results of 22.1 called and faxed to pharmacy; pending them to make adjustment at this time.
[2019-07-03 20:09] VITALS: BP 123/51
[2019-07-03] MEDS: RISPERIDONE 1 MG TABLET PO SCH (21:49)
[2019-07-03 23:25] VITALS: BP 119/55
[2019-07-04] MEDS: SODIUM CHLORIDE 0.9% 1000ML 1,000 ML IV SCH ×2 (01:41→19:28)
[2019-07-04 04:00] VITALS: BP 120/50
[2019-07-04] MEDS: INSULIN HUMULIN R 100 UNIT/ML 3ML SQ SCH ×4 (05:31→23:23)
[2019-07-04] MEDS: METRONIDAZOLE 500 MG TABLET PO SCH ×3 (06:21→23:22)
[2019-07-04 08:00] VITALS: BP 121/49
[2019-07-04] MEDS: HONEY 1 APPL/ML TUBE TP SCH (08:00)
[2019-07-04] MEDS: MELOXICAM 7.5 MG TABLET PO SCH (09:06)
[2019-07-04] MEDS: ACETAMINOPHEN 325 MG TAB PO PRN (09:06)
[2019-07-04] MEDS: SERTRALINE HCL 50 MG TABLET PO SCH ×2 (09:07→23:22)
[2019-07-04] MEDS: VANCOMYCIN 1GM+NS 250ML 250 ML IV SCH (09:07)
[2019-07-04] MEDS: FUROSEMIDE 20 MG TABLET PO SCH (09:07)
[2019-07-04] MEDS: BUSPIRONE HCL 5 MG TABLET PO SCH (09:07)
[2019-07-04] MEDS: ENOXAPARIN SODIUM 30 MG/0.3 ML SQ SCH (09:08)
[2019-07-04] MEDS: LISINOPRIL 5 MG TABLET PO SCH (09:08)
[2019-07-04 11:00] VITALS: BP 118/46
[2019-07-04 16:00] VITALS: BP 119/50
--- NOTE | 2019-07-04 16:24 | NUR ---
RD NOTIFICATION Diet: 75gmCCD/ Mechanical ground/ Ensure TID. PO intake 75% and has good appetite as per family. Pt tolerating mechanical ground textures well. Pt requires assisted feedings at all meals. LBM: 07/03. Pt likes ensure and is drinking them daily as per family. Recommendations: Continue current diet, Offer Glucerna TID Assisted feedings with all meals please 500mg Vitamin C BID to aid wound healing 220MG Zinc Sulfate QD for 14 days to aid wound healing\ Will continue to monitor and follow up as needed, thank you. Addendum: 07/04/19 at [address] Amended: Links added.
--- NOTE | 2019-07-04 16:45 | NUR ---
CM Note: [facility] pending expedited appeal CM spoke to Subha rothman/Shima, pt still currently pending ins auth for expedited appeal signed by Dr Gonzalez. Primary nurse aware. CM to cont to follow up.
[2019-07-04] MEDS: BACLOFEN 10 MG TABLET PO SCH (17:05)
[2019-07-04 20:00] VITALS: BP 109/49
--- NOTE | 2019-07-04 20:46 | NUR ---
ROUNDS DR. KATZ HERE ROUNDING. INFORMED THAT PATIENT IS AWAITING TO HEAR FROM [facility] OVER ACCEPTANCE/REVIEW OF APPEAL. ALSO THAT PATIENT HAD BLOOD SUGAR 52 THIS EVENING SHE IS SLEEPY. OPENS EYES, BUT DOES NOT COME TO FULL ALERTNESS. TRIED TO FEED HER BUT IS NOT WANTING TO EAT. MEDICATED WITH D50 IV. AND WILL CONTINUE TO MONITOR HER BLOOD SUGARS.
--- NOTE | 2019-07-04 21:00 | NUR ---
NOTE PATIENT MORE ALERT. STILL DOES NOT WANT TO TAKE ANY FOOD. BLOOD SUGAR NOW 155.
[2019-07-04] MEDS: RISPERIDONE 1 MG TABLET PO SCH (23:23)
[2019-07-05] VITALS: BP 131/74
[2019-07-05 04:00] VITALS: BP 126/67
[2019-07-05] MEDS: INSULIN HUMULIN R 100 UNIT/ML 3ML SQ SCH ×3 (07:30→16:30)
[2019-07-05 07:42] VITALS: BP 141/64
[2019-07-05] MEDS: HONEY 1 APPL/ML TUBE TP SCH (08:00)
[2019-07-05] MEDS: ENOXAPARIN SODIUM 30 MG/0.3 ML SQ SCH (09:01)
[2019-07-05] MEDS: LISINOPRIL 5 MG TABLET PO SCH (09:02)
[2019-07-05] MEDS: VANCOMYCIN 1GM+NS 250ML 250 ML IV SCH (09:02)
[2019-07-05] MEDS: BUSPIRONE HCL 5 MG TABLET PO SCH (09:02)
[2019-07-05] MEDS: FUROSEMIDE 20 MG TABLET PO SCH (09:03)
[2019-07-05] MEDS: SERTRALINE HCL 50 MG TABLET PO SCH (09:03)
[2019-07-05] MEDS: MELOXICAM 7.5 MG TABLET PO SCH (09:03)
[2019-07-05 11:00] VITALS: BP 124/60
--- NOTE | 2019-07-05 12:08 | NUR ---
CM Note: [facility] pending expedited appeal approval CM spoke to Subha Graf, received updated clinicals this morning, already forwarded to insurance. Pt still pending approval for expedited appeal. MOT semi-filled pending to be completed once approved, flagged in chart. EMS arranged and faxed for today, primary nurse to call [facility] once pt ready to DC. Primary nurse aware. CM to cont to follow up.
[2019-07-05] MEDS ORDERED: METRONIDAZOLE 500 MG TABLET PO SCH (14:00)
--- NOTE | 2019-07-05 15:29 | NUR ---
CM Note: [facility] approval for expedited appeal CM spoke to Subha Graf, pt expedited appeal has been approved. MOT filled out, pending house super to sign. EMS arranged and faxed, primary nurse to call [facility] once pt ready to DC. Primary nurse aware. CM to cont to follow up.
[2019-07-05 16:00] VITALS: BP 95/50
[2019-07-05] MEDS: BACLOFEN 10 MG TABLET PO SCH (17:13)
[2019-07-05] MEDS: ACETAMINOPHEN 325 MG TAB PO PRN (17:15)
--- NOTE | 2019-07-05 18:00 | NUR ---
NOTE REPORT CALLED TO [facility], SPOKE TO CARLOS EDUARDO CAMEJO RN. PATIENT JUST WAITING FOR TRANSPORT VIA EMS
--- NOTE | 2019-07-05 18:30 | NUR ---
NOTE WOUND VAC DRESSING REMOVED. APPLIED WET TO DRY DRESSING FOR NOW. PATIENT WILL GET WOUND VAC PLACED WHEN SHE GETS TO [facility] Addendum: 07/05/19 at 1947 by MARY ANNE SANCHEZ RN WOUND [id number] WITH 3 CM TUNNELING TOWARDS MID-LOWER BACK ON ONE SIDE OF THE WOUND ONLY.
== END 2019-07-05 20:15 | DRG 571 ==
LOC: EDH 12:45 → EDHIP 17:27 → 3AH 19:20 → 4BH 22:11
PROVIDERS: ADMIT Hospitalist; ATTEND Hospitalist
PROC: 0JB70ZZ Excision of Back Subcutaneous Tissue and Fascia, Open Approach (ICD-10-PCS; principal; 2019-06-27 08:39)
DX: L89.154 Pressure ulcer of sacral region, stage 4 (principal); N17.9 Acute kidney failure, unspecified; N39.0 Urinary tract infection, site not specified; Z16.24 Resistance to multiple antibiotics; B99.9 Unspecified infectious disease; D64.9 Anemia, unspecified; F02.80 Dementia in other diseases classified elsewhere, unspecified severity, without behavioral disturbance, psychotic disturbance, mood disturbance, and anxiety; F20.9 Schizophrenia, unspecified; E11.621 Type 2 diabetes mellitus with foot ulcer; L97.519 Non-pressure chronic ulcer of other part of right foot with unspecified severity; G30.9 Alzheimer's disease, unspecified; I10 Essential (primary) hypertension; L89.310 Pressure ulcer of right buttock, unstageable; W19.XXXA Unspecified fall, initial encounter; Y93.89 Activity, other specified; Y92.89 Other specified places as the place of occurrence of the external cause; Y99.8 Other external cause status; Z74.01 Bed confinement status; Z83.3 Family history of diabetes mellitus
CPT/HCPCS: 36415; 71045; 72197; 74176; 80048; 80053; 80202; 81001; 82550; 82948; 83605; 83690; 83735; 83874; 84132; 84145; 84484; 85025; 85610; 85730; 87040; 87070; 87076; 87077; 87088; 87186; 88304; 93005; 97039; 99291; A9579; G0378; J0330; J1100; J1650; J1815; J2001; J2060; J2270; J2543; J2704; J2710; J3010; J3370; J3475; J3480; J3490; J7030; J7070